=== PATIENT | female | born 2000 | race Caucasian/White ===

== ENCOUNTER 2022-02-25 15:46 | Emergency (ER) | payer BC, OTHER ==
[~2022-02-25] VITALS: Ht 157 cm; Wt 47.0 kg
[2022-02-25] MEDS ORDERED: NS IV 1000 ML 1,000 ML IV SCH (16:00)
[2022-02-25 16:10] LABS: BASOPHILS % (AUTO) 0 % (0-10); EOSINOPHILS % (AUTO) 0 % (0-10); HEMATOCRIT 42 % (35-52); HEMOGLOBIN 14.7 g/dL (11.5-16.0); LYMPHOCYTES # (AUTO) 2.6 10^3/uL (1.0-4.0); LYMPHOCYTES % (AUTO) 24 % (12-44); MEAN CORPUSCULAR HEMOGLOBIN 28 pg (25-34); MEAN CORPUSCULAR HGB CONC 35 g/dL (32-36); MEAN CORPUSCULAR VOLUME 81 fL (80-99); MEAN PLATELET VOLUME 8.7 fL (9.0-12.2); MONOCYTES # (AUTO) 0.9 10^3/uL (0.0-1.0); MONOCYTES % (AUTO) 8 % (0-12); NEUTROPHILS # (AUTO) 7.1 10^3/uL (1.8-7.8); NEUTROPHILS % (AUTO) 67 % (42-75); PLATELET COUNT 488 10^3/uL (130-400); WHITE BLOOD COUNT 10.7 10^3/uL (4.3-11.0)
[2022-02-25] MEDS ORDERED: ONDANSETRON 4 MG/2 ML (SDV) Z0FRAN IVP ONE (16:15)
--- NOTE | 2022-02-25 16:15 | ED General ---
General Chief Complaint: Overdose Stated Complaint: POSS OVERDOSE Nursing Triage Note: Pt here with ingestion of Adderall. Pt states she took 5 pills last night while drinking. States she took them from a friend and was trying to have a "good time". Pt denies SI/HI. States she has been feeling "jittery and soa". Source of Information: Patient Exam Limitations: No Limitations History of Present Illness Date Seen by Provider: Feb 25, 2022 Time Seen by Provider: 16:00 Initial Comments Patient is a 21-year-old female who presents to the emergency department with mi ld shortness of air and "jitteriness" after she took 5 Adderall pills from a friend last night while drinking. She states she was not doing this in the attempt at self-harm but did so in the hope of "having a good time". She denies any chest pain. Denies any other co-ingestions. States she is currently on her menses. Allergies and Home Medications Allergies Coded Allergies: No Known Drug Allergies (Unverified , 02/25/22) Patient Home Medication List Home Medication List Reviewed: Yes Ondansetron (Ondansetron Odt) 4 Mg Tab.rapdis, 4 MG SL Q4H PRN for NAUSEA/VOMITING Prescribed by: Ann Marie Vo on 02/25/22 1722 Review of Systems Review of Systems Constitutional: see HPI EENTM: no symptoms reported Respiratory: see HPI Cardiovascular: no symptoms reported Gastrointestinal: no symptoms reported Genitourinary: no symptoms reported Musculoskeletal: no symptoms reported Past Ymmpwyv-Apmgny-Nkzibq Hx Patient Social History Smoking Status: Never a Smoker Smokeless Tobacco Frequency: Never a User Alcohol Use?: Yes Past Medical History Last Menstrual Period: Feb 25, 2022 Physical Exam Vital Signs Vital Signs - First Documented 02/25/22 15:54 Temp 35.8 Pulse 112 Resp 16 B/P (MAP) 139/102 (114) Pulse Ox 100 O2 Delivery Room Air Capillary Refill : Less Than 3 Seconds Height, Weight, BMI Height: '" Weight: lbs. oz. kg; 19.00 BMI Method: General Appearance: No Apparent Distress, WD/WN HEENT: PERRL/EOMI, TMs Normal, Normal ENT Inspection, Pharynx Normal Neck: Full Range of Motion, Normal Inspection, Non Tender, Supple Respiratory: Chest Non Tender, Lungs Clear, Normal Breath Sounds, No Accessory Muscle Use, No Respiratory Distress Cardiovascular: Regular Rate, Rhythm Gastrointestinal: Normal Bowel Sounds Extremity: Normal Capillary Refill, Normal Inspection Neurologic/Psychiatric: Alert, Oriented x3, No Motor/Sensory Deficits, Normal Mood/Affect Skin: Normal Color, Warm/Dry Progress/Results/Core Measures Suspected Sepsis SIRS Temperature: Pulse: 112 Respiratory Rate: 16 Laboratory Tests 02/25/22 16:00: White Blood Count 10.7 Blood Pressure 139 /102 Mean: 114 Laboratory Tests 02/25/22 16:00: Creatinine 0.81, Platelet Count 488H, Total Bilirubin 0.7 Results/Orders Lab Results Laboratory Tests Test 02/25/22 13:26 02/25/22 16:00 Range/Units Urine Color YELLOW Urine Clarity CLEAR Urine pH 7.0 5-9 Urine Specific Petroleum 1.010 L 1.016-1.022 Urine Protein NEGATIVE NEGATIVE Urine Glucose (UA) NEGATIVE NEGATIVE Urine Ketones NEGATIVE NEGATIVE Urine Nitrite NEGATIVE NEGATIVE Urine Bilirubin NEGATIVE NEGATIVE Urine Urobilinogen 0.2 < = 1.0 MG/DL Urine Leukocyte Esterase NEGATIVE NEGATIVE Urine RBC (Auto) TRACE-I H NEGATIVE Urine RBC RARE /HPF Urine WBC NONE /HPF Urine Squamous Epithelial Cells 0-2 /HPF Urine Crystals NONE /LPF Urine Bacteria TRACE /HPF Urine Casts NONE /LPF Urine Mucus NEGATIVE /LPF Urine Culture Indicated NO Urine Test NEGATIVE NEGATIVE Urine Opiates Screen NEGATIVE NEGATIVE Urine Oxycodone Screen NEGATIVE NEGATIVE Urine Methadone Screen NEGATIVE NEGATIVE Urine Propoxyphene Screen NEGATIVE NEGATIVE Urine Barbiturates Screen NEGATIVE NEGATIVE Ur Tricyclic Antidepressants Screen NEGATIVE NEGATIVE Urine Phencyclidine Screen NEGATIVE NEGATIVE Urine Amphetamines Screen POSITIVE H NEGATIVE Urine Methamphetamines Screen NEGATIVE NEGATIVE Urine Benzodiazepines Screen NEGATIVE NEGATIVE Urine Cocaine Screen NEGATIVE NEGATIVE Urine Cannabinoids Screen NEGATIVE NEGATIVE White Blood Count 10.7 4.3-11.0 10^3/uL Red Blood Count 5.21 H 3.80-5.11 10^6/uL Hemoglobin 14.7 11.5-16.0 g/dL Hematocrit 42 35-52 % Mean Corpuscular Volume 81 80-99 fL Mean Corpuscular Hemoglobin 28 25-34 pg Mean Corpuscular Hemoglobin Concent 35 32-36 g/dL Red Cell Distribution Width 12.2 10.0-14.5 % Platelet Count 488 H 130-400 10^3/uL Mean Platelet Volume 8.7 L 9.0-12.2 fL Immature Granulocyte % (Auto) 0 % Neutrophils (%) (Auto) 67 42-75 % Lymphocytes (%) (Auto) 24 12-44 % Monocytes (%) (Auto) 8 0-12 % Eosinophils (%) (Auto) 0 0-10 % Basophils (%) (Auto) 0 0-10 % Neutrophils # (Auto) 7.1 1.8-7.8 10^3/uL Lymphocytes # (Auto) 2.6 1.0-4.0 10^3/uL Monocytes # (Auto) 0.9 0.0-1.0 10^3/uL Eosinophils # (Auto) 0.0 0.0-0.3 10^3/uL Basophils # (Auto) 0.0 0.0-0.1 10^3/uL Immature Granulocyte # (Auto) 0.0 0.0-0.1 10^3/uL Sodium Level 138 135-145 MMOL/L Potassium Level 3.2 L 3.6-5.0 MMOL/L Chloride Level 103 98-107 MMOL/L Carbon Dioxide Level 19 L 21-32 MMOL/L Anion Gap 16 H 5-14 MMOL/L Blood Urea Nitrogen 4 L 7-18 MG/DL Creatinine 0.81 0.60-1.30 MG/DL Estimat Glomerular Filtration Rate 105 BUN/Creatinine Ratio 5 Glucose Level 107 H 70-105 MG/DL Calcium Level 10.1 8.5-10.1 MG/DL Corrected Calcium 8.5-10.1 MG/DL Total Bilirubin 0.7 0.1-1.0 MG/DL Aspartate Amino Transf (AST/SGOT) 16 5-34 U/L Alanine Aminotransferase (ALT/SGPT) 14 0-55 U/L Alkaline Phosphatase 64 40-136 U/L Total Protein 8.1 6.4-8.2 GM/DL Albumin 4.9 H 3.2-4.5 GM/DL Salicylates Level < 5.0 L 5.0-20.0 MG/DL Acetaminophen Level < 10 L 10-30 UG/ML Serum Alcohol < 10 <10 MG/DL My Orders Orders - ANN MARIE VO [employer] Cbc With Automated Diff (02/25/22 16:00) Comprehensive Metabolic Panel (02/25/22 16:00) Urinalysis (02/25/22 16:00) Drug Screen Stat (Urine) (02/25/22 16:00) Hcg,Qualitative Urine (02/25/22 16:00) Iv/Invasive Line Insertion .IV INSERT (02/25/22 16:00) Ekg Tracing (02/25/22 16:00) Ns Iv 1000 Ml (Sodium Chloride 0.9%) (02/25/22 16:00) Acetaminophen (02/25/22 16:00) Salicylate (02/25/22 16:00) Alcohol (02/25/22 16:03) Ondansetron Injection (Zofran Injectio (02/25/22 16:15) Lorazepam Tablet (Ativan Tablet) (02/25/22 16:32) Medications Given in ED Current Medications Medications Dose Ordered Sig/Scooter Route Start Time Stop Time Status Last Admin Dose Admin Ondansetron HCl 4 mg ONCE ONCE IVP 02/25/22 16:15 02/25/22 16:16 DC 02/25/22 16:15 4 MG Vital Signs/I&O 02/25/22 02/25/22 02/25/22 15:54 16:54 17:29 Temp 35.8 35.8 Pulse 112 89 89 Resp 16 18 18 B/P (MAP) 139/102 (114) 138/92 (107) 138/92 Pulse Ox 100 100 100 O2 Delivery Room Air Room Air Room Air Capillary Refill : Less Than 3 Seconds Blood Pressure Mean: 114 Progress Note : Progress Note Patient is nontoxic and well-hydrated on exam. She is mildly tachycardic but vital signs are otherwise reassuring. No adventitious lung sounds or increased work of breathing noted. Laboratory evaluation largely unremarkable. UDS positive for amphetamines as expected given reported Adderall use. Salicylate, acetaminophen, and ethanol levels are all below detectable levels. She had marked improvement with a normal saline bolus, Zofran, and Ativan. I had a lengthy discussion with her discussing that symptoms may still last for several hours given the extended half-life of Adderall. Follow-up with PCP as needed. Return precautions for urgent symptomology discussed. Patient verbalized understanding. ECG EKG : EKG Time: 16:15 Rate: 99 Rhythm: Normal Sinus Intervals: Normal ECG Impression: Normal Departure Impression Primary Impression: Amphetamine abuse Disposition: 01 HOME, SELF-CARE Condition: Improved Departure-Patient Inst. Decision time for Depature: 17:20 Referrals: NO,LOCAL PHYSICIAN (PCP/Family) Primary Care Physician Patient Instructions: ALCOHOL AND SUBSTANCE ABUSE, Prescription Drug Abuse (DC) Scripts Ondansetron (Ondansetron Odt) 4 Mg Tab.rapdis 4 MG SL Q4H PRN for NAUSEA/VOMITING for 5 Days, #15 TAB 0 Refills Prov: ANN MARIE VO APRN 02/25/22 ANN MARIE VO APRN Feb 25, 2022 16:15
[2022-02-25 16:16] LABS: ALBUMIN 4.9 GM/DL (3.2-4.5); CHLORIDE 103 MMOL/L (98-107); POTASSIUM 3.2 MMOL/L (3.6-5.0); SODIUM 138 MMOL/L (135-145)
[2022-02-25 16:18] LABS: CALCIUM 10.1 MG/DL (8.5-10.1)
[2022-02-25 16:19] LABS: GLUCOSE 107 MG/DL (70-105); TOTAL PROTEIN 8.1 GM/DL (6.4-8.2)
[2022-02-25 16:20] LABS: CARBON DIOXIDE 19 MMOL/L (21-32)
[2022-02-25 16:21] LABS: BILIRUBIN,TOTAL 0.7 MG/DL (0.1-1.0)
[2022-02-25 16:23] LABS: ALKALINE PHOSPHATASE 64 U/L (40-136); CREATININE SERUM 0.81 MG/DL (0.60-1.30); GFR ESTIMATED 105
[2022-02-25 16:24] LABS: BUN/CREATININE RATIO 5
[2022-02-25 16:25] LABS: SALICYLATE < 5.0 MG/DL (5.0-20.0)
[2022-02-25 16:26] LABS: ALANINE AMINOTRANSFERASE 14 U/L (0-55)
[2022-02-25 16:31] LABS: BILIRUBIN,URINE NEGATIVE (NEGATIVE); CLARITY,URINE CLEAR; COLOR,URINE YELLOW; GLUCOSE, URINE (UA) NEGATIVE (NEGATIVE); KETONES,URINE NEGATIVE (NEGATIVE); LEUKOCYTE ESTERASE ,URINE NEGATIVE (NEGATIVE); NITRITE,URINE NEGATIVE (NEGATIVE); PROTEIN,URINE NEGATIVE (NEGATIVE)
[2022-02-25] MEDS ORDERED: LORazepam 0.5 MG (ATIVAN) TABLET PO STA (16:32)
[2022-02-25 16:38] LABS: ACETAMINOPHEN < 10 UG/ML (10-30)
[2022-02-25 16:39] LABS: BACTERIA,URINE TRACE /HPF; HCG,QUALITATIVE URINE NEGATIVE (NEGATIVE); RBC,URINE RARE /HPF; SQUAMOUS EPITHELIAL CELL,UR 0-2 /HPF
[2022-02-25 16:45] LABS: AMPHETAMINE SCREEN, URINE POSITIVE (NEGATIVE); BARBITURATE SCREEN URINE NEGATIVE (NEGATIVE); BENZODIAZEPINES SCREEN URINE NEGATIVE (NEGATIVE); CANNABINOID SCREEN, URINE NEGATIVE (NEGATIVE); COCAINE SCREEN URINE NEGATIVE (NEGATIVE); METHADONE STAT NEGATIVE (NEGATIVE); OPIATE SCREEN URINE NEGATIVE (NEGATIVE); OXYCODONE STAT NEGATIVE (NEGATIVE); PROPOXYPHENE STAT NEGATIVE (NEGATIVE); TRICYCLIC ANTIDEPRESSANTS SCRE NEGATIVE (NEGATIVE)
[2022-02-25] MEDS ORDERED: ONDA4TAB11 SL (17:22)
[2022-02-25 17:29] VITALS: BP 138/92
== END 2022-02-25 17:32 | disposition home or self-care (01) ==
LOC: ER 15:49
DX: F15.10 Other stimulant abuse, uncomplicated (principal); R00.0 Tachycardia, unspecified; Z28.310 Unvaccinated for COVID-19
CPT/HCPCS: 36415; 80053; 80306; 80320; 80329; 81000; 84703; 85025; 93005